=== PATIENT | male | born 1980 | race Caucasian/White ===

== ENCOUNTER → 2016-12-15 | Outpatient (CLI) | payer BC ==
--- NOTE | 2016-12-15 09:55 | USB ---
Reason for exam: clinical finding. History: U/S LT Cancelled Core of both breasts, November 25, 2013. Physical Findings: Nurse Summary: Patient complains of left breast swelling and pain x 6 weeks, antibiotics x 2 weeks with improvment (nurse mm). US Breast LT Left breast ultrasound includes all four quadrants, the retroareolar region and axilla. Finding demonstrates a 2.0 x 2.5 x 1.4cm hypoechoic, vascular lesion at the nipple. Probable inflammed gynecomastia surgical consult recommended. Consider excision. These results were verbally communicated with the patient and result sheet given to the patient on 12/15/16. ASSESSMENT: Probably benign, BI-RAD 3 RECOMMENDATION: Surgical consultation of the left breast. Manage patient on a clinical basis. Called with mammographic findings and has scheduled an appointment for the patient for 12/20/16 at 8:[address] Guevara. PRELIMINARY REPORT CALLED AND FAXED TO DR. GUEVARA ON 12/15/16 AT 300/TP.
[2016-12-15 10:54] LABS: Bilirubin, Delta 0.3 mg/dL (0.0-0.2); Total Bilirubin 0.7 mg/dL (0.2-1.3); Total Protein 8.1 g/dL (6.3-8.2)
[2016-12-15 15:01] LABS: Follicle Stimulating Hormone 2.9 mIU/mL (1.6-9.7); Prolactin 23.9 ng/mL (3.7-17.9)
== END | disposition home or self-care (01) ==
LOC: RADUSWWP 07:49
PROVIDERS: ATTEND Surgery
DX: N62 Hypertrophy of breast (principal)
CPT/HCPCS: 80076; 82626; 82670; 83001; 83002; 84146; 84403; 84443; 84702

== ENCOUNTER 2017-01-25 11:23 | Day surgery (SDC) | payer BC ==
[2017-01-23 10:12] VITALS: BMI 33.7
[~2017-01-25 11:23] MED LIST: DEXAMETHASONE SOD PHOSPHATE 10 MG/ML 1 ML VIAL IV ONE; HEPARIN SODIUM,PORCINE 5,000 UNIT/ML 1 ML VIAL SQ ONE; HYDROmorphone 1 MG/ML 1 ML SYRINGE IVP PRN; LACTATED RINGERS 1,000 ML IV SCH; LIDOCAINE 1% 20 ML VIAL (10MG/ML) FOR IV START INTRADERMA PRN; ONDANSETRON 4 MG/2 ML VIAL IVP ONE; Pre Op ABX Message 1 EACH MISC MISCELLANE ONE; SCOPOLAMINE 1.5MG/72HR PATCH TRANSDERM ONE
[2017-01-25] MEDS ORDERED: MIDAZOLAM 2 MG/2 ML VIAL IV ONE (12:14)
[2017-01-25] MEDS ORDERED: CLINDAMYCIN 900 MG in DEXTROSE 5% IN WATER 50 ML IVPB STA ×2 (12:55)
--- NOTE | 2017-01-25 13:11 | P.GSHP ---
History of Present Illness H&P Date: 01/25/17 Chief Complaint: Left gynecomastia 36 yrs old male presents with painful left breast enlargement for several weeks. Known gynecomastia left> right breast since age 8 as per patient. There was a red rash around the areola which has subsided. ball thread machine tender around the nipple. No nipple discharge. No fever. Smokes marijuana 2 times/ week. Pain has subsided but still has sensitivity of the nipple area ROS Additionally reports: Constitutional: No fever, chills or rigors. No weight loss or loss of appetite. HEENT: No difficulty with hearing, vision and swallowing. Lymphatic: No axillary, inguinal and cervical swellings. Endocrine: No thyroid disorders. Denies history of diabetes. Respiratory: No chest pain, shortness of breath, and cough. No hemoptysis. Cardiovascular: No palpitations, irregular HR Gastrointestinal: Denies heartburn. No change in bowel habits. No nausea or vomiting. Genitourinary: No increase in urinary frequency or urgency. No hematuria. No testicular masses or swelling Musculoskeletal: No back pain, joint stiffness or pain. Neurologic: No history of seizure disorder and headaches. Psychiatric: Denies depression or anxiety . No suicidal ideation. Hematologic: Denies any abnormal mucosal bleeding or easy bruising. Physical Exam Patient is a 36-year-old male. Breast: Inspection/Palpation: no erythema; Left breast > right. 3x3 cm circumscribed retroareolar mass, tender. No axillary lymph nodes enlarged. Abdomen: Auscultation/Inspection/Palpation: soft, non-distended, normal bowel sounds, and no tenderness. Hernia: none palpated. Lungs: Respiratory effort: no dyspnea. Auscultation: breath sounds normal. Cardiovascular: Heart Auscultation: normal S1 and S2. Assessment / Plan Painful gynecomastia 1. US left breast - gynecomastia 2. TSH, testosterone, estradiol ,HCG levels- normal 3. Left breast lumpectomy 4. Quit marijuana use 5. DIscussed about gynecomastia surgery - may cause left breast to be smaller post surgery and asymmetry may result. 1. Gynecomastia N62: Hypertrophy of breast Past Medical History Past Medical History: Hyperlipidemia, Hypertension Additional Past Medical History / Comment(s): No medication needed for hyperlidemia. History of Any Multi-Drug Resistant Organisms: None Reported Past Surgical History: No Surgical Hx Reported Past Anesthesia/Blood Transfusion Reactions: No Reported Reaction Past Psychological History: No Psychological Hx Reported Smoking Status: Former smoker Past Alcohol Use History: Occasional Additional Past Alcohol Use History / Comment(s): Smoked 1/2PPD for 15 yrs, quit 11/2016. Past Drug Use History: None Reported - Past Family History Father Family Medical History: No Reported History Medications and Allergies Home Medications Medication Instructions Recorded Confirmed Type Hydrochlorothiazide 25 mg PO QAM 01/23/17 01/25/17 History Lisinopril 20 mg PO QAM 01/23/17 01/25/17 History Loratadine [Claritin] 10 mg PO DAILY PRN 01/23/17 01/25/17 History Multivitamin [Men's Multi-Vitamin] 1 each PO DAILY 01/23/17 01/25/17 History Allergies Allergy/AdvReac Type Severity Reaction Status Date / Time Penicillins Allergy Unknown Verified 01/25/17 11:37 Childhood Surgical - Exam Vital Signs Temp Pulse BP Pulse Ox 97.6 F 72 143/90 97 01/25/17 11:43 01/25/17 11:43 01/25/17 11:43 01/25/17 11:43
[2017-01-25] MEDS ORDERED: PROPOFOL 10 MG/ML 20 ML VIAL IV ONE (13:20)
[2017-01-25] MEDS ORDERED: PHENYLEPHRINE-0.9% NACL SYG 1 MG/10 ML SYRINGE ONE (13:20)
[2017-01-25] MEDS ORDERED: SUCCINYLCHOLINE CHLORIDE 100 MG/5 ML SYR IV ONE (13:20)
[2017-01-25] MEDS ORDERED: MIDAZOLAM 2 MG/2 ML VIAL ONE (13:20)
[2017-01-25] MEDS ORDERED: LIDOCAINE 1% INJ 10MG/ML (20 ML MDV) ONE (13:20)
[2017-01-25] MEDS ORDERED: fentaNYL (PF) 50 MCG/ML 2 ML AMP ONE (13:20)
[2017-01-25] MEDS ORDERED: LIDOCAINE 2% (PF) 20 MG/ML 10ML SQ ONE (13:56)
[2017-01-25 15:10] VITALS: RESP 16; TEMP 97.7
[2017-01-25 16:16] VITALS: PULSE 70
[2017-01-25 16:33] VITALS: BP 128/81
--- NOTE | 2017-01-25 17:26 | P.OP ---
Date of Procedure: 01/25/17 Preoperative Diagnosis: Painful gynecomastia left breast Obesity BMI 33.7 History of marijuana use Postoperative Diagnosis: Same Procedure(s) Performed: Left breast lumpectomy Implants: NA Anesthesia: CHELSEYA, local Surgeon: Any Guevara Pathology: other Condition: stable Disposition: PACU Indications for Procedure: 36 years old male presents with left painful gynecomastia for several months. The nipple redness has subsided however he has pain and sensitivity on the left side underneath the nipple area. Informed consent obtained and patient elected to undergo left breast lumpectomy. The risks, benefits and potential complications including bleeding, infection, discrepancy in breast size, possible nipple necrosis were discussed and he elected to undergo left breast lumpectomy Operative Findings: Fibroadipose and breast tissue underneath the left area Nipple which was excised. Total tissue removed was grams Description of Procedure: The patient was brought to the operating room and placed in supine position with both arms out. IV sedation was given as per anesthesia team. Both breasts wwere prepped using ChloraPrep. Sterile drapes were applied. A timeout was performed to verify correct patient, correct procedure and correct side. Patient was confirmed to receive perioperative IV antibiotics, heparin 5000 units subcutaneous injection for DVT prophylaxis and bilateral SCDs. A 3 cm circumareolar skin incision was made along the inferior areola border. Superior and inferior subcutaneous flaps were raised. A 3 cm circumferential breast tissue was removed. The resulting defect was irrigated with normal saline and checked for hemostasis. The defect measured 7.5x6.5 x 4 cm. This was closed in 2 layers using interrupted sutures of 3-0 Vicryl followed by running subcuticular stitches of 4-0 Monocryl. Dermabond skin glue was applied. The sponge, instrument and needle count were correct 2. Patient tolerated the procedure well and was taken to post anesthesia care unit in stable condition. Final Pathologic Diagnosis BREAST, LEFT LUMPECTOMY : MATURE BENIGN VASCULARIZED FIBROADIPOSE TISSUE WITH FOCAL MATURE BENIGN BREAST PARENCHYMA, FAVOR LIPOMA.
== END 2017-01-25 16:36 | disposition home or self-care (01) ==
LOC: OR 11:23
PROVIDERS: ATTEND Surgery
DX: D17.79 Benign lipomatous neoplasm of other sites (principal); E66.9 Obesity, unspecified; Z68.37 Body mass index [BMI] 37.0-37.9, adult; Z88.0 Allergy status to penicillin; K21.9 Gastro-esophageal reflux disease without esophagitis
CPT/HCPCS: 19301; 88305; J2250; J1644; J1100; J2001 ×2; J2405; J3010; J2370; J0330; J2704

== ENCOUNTER 2019-05-22 14:52 | Emergency (ER) | payer BC ==
[2019-05-22 15:05] VITALS: BP 146/96; PULSE 62; RESP 18; TEMP 97.9
[2019-05-22] MEDS ORDERED: ORPHENADRINE 30 MG/ML 2 ML VIAL IM STA (15:24)
[2019-05-22] MEDS ORDERED: HYDROmorphone 0.5 MG/0.5 ML SYRINGE IVP STA (15:26)
[2019-05-22] MEDS ORDERED: KETOROLAC 60 MG/2 ML VIAL IM STA (15:26)
[2019-05-22] MEDS ORDERED: HYDROmorphone 0.5 MG/0.5 ML SYRINGE IM STA ×2 (15:36→17:11)
--- NOTE | 2019-05-22 15:50 | ED ---
Back Pain HPI - General Chief Complaint: Back Pain/Injury Stated Complaint: back pain Time Seen by Provider: 05/22/19 14:57 Source: patient Limitations: no limitations - History of Present Illness Initial Comments: Patient is a 39-year-old male presenting to emergency Department, via EMS, with complaints of low back pain and spasming since yesterday. Patient admits to chronic history of low back pain and spasms. Patient states he's had no trauma or injury to his back and the recent week. Patient states he went to the chiropractor yesterday and that his increase his pain. Patient denies any numbness and tingling into his extremities. Patient did try Tylenol and Motrin without relief. Patient states he is unable to sit as it makes the pain worse. Patient denies any saddle paresthesias or problems with urinating or bowel movements. Patient denies fever, chills. No other complaints at this time. Upon arrival to ER, vital signs are stable. - Related Data Home Medications Medication Instructions Recorded Confirmed Hydrochlorothiazide 25 mg PO QAM 01/23/17 01/25/17 Lisinopril 20 mg PO QAM 01/23/17 01/25/17 Loratadine [Claritin] 10 mg PO DAILY PRN 01/23/17 01/25/17 Multivitamin [Men's Multi-Vitamin] 1 each PO DAILY 01/23/17 01/25/17 Previous Rx's Medication Instructions Recorded Docusate [Colace] 100 mg PO BID #30 capsule 01/25/17 Hydrocodone/Acetaminophen [[place] 1 each PO Q6HR PRN #20 tab 01/25/17 5-325] Ketorolac [Toradol] 10 mg PO Q8HR #15 tab 05/22/19 methylPREDNISolone [Medrol Dose 4 mg PO DIRECTED #1 pack 05/22/19 Pack] Allergies Allergy/AdvReac Type Severity Reaction Status Date / Time Penicillins Allergy Unknown Verified 05/22/19 15:00 Childhood Review of Systems ROS Statement: Those systems with pertinent positive or pertinent negative responses have been documented in the HPI. ROS Other: All systems not noted in ROS Statement are negative. 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 HEAD: Atraumatic, normocephalic. EYES: Pupils equal round and reactive to light, extraocular movements intact, sclera anicteric, conjunctiva are normal. NECK: Normal range of motion, supple without lymphadenopathy or JVD. LUNGS: Breath sounds clear to auscultation bilaterally and equal. No wheezes rales or rhonchi. HEART: Regular rate and rhythm without murmurs, rubs or gallops. ABDOMEN: Soft, nontender, normoactive bowel sounds. No guarding, no rebound. No masses appreciated. : Deferred EXTREMITIES: Pain with palpation of the lumbar paraspinals bilaterally, and SI joint. Patient has pain with trunk range of motion. Sensation is equal and bilateral in the lower extremities. No pitting or edema. No clubbing or cyanosis. NEUROLOGICAL: Cranial nerves II through XII grossly intact. Normal speech. PSYCH: Normal mood, normal affect. SKIN: Warm, Dry, normal turgor, no rashes or lesions noted. Limitations: no limitations Course Vital Signs 05/22/19 15:00 Temperature 97.9 F Pulse Rate 62 Respiratory 18 Rate Blood Pressure 146/96 O2 Sat by Pulse 97 Oximetry Medical Decision Making - Medical Decision Making Patient is a 39-year-old male presenting with low back pain 2 days. Patient has history of low back pain. No trauma or injuries to the back. No red flag symptoms. X-rays reveal no acute fractures dislocations. Patient was given pain control, steroids. Patient will be discharged home with short course of steroids and Toradol. Patient is to follow-up with his PCP or orthopedics for further management. Patient will continue with muscle relaxers he has at home. Return parameters were discussed with the patient he verbalizes understanding. Case discussed with Dr. Lee. Disposition Clinical Impression: Low back pain Disposition: HOME SELF-CARE Condition: Stable Instructions (If sedation given, give patient instructions): Acute Low Back Pain (ED) Additional Instructions: Please return to the Emergency Department if symptoms worsen or any other concerns. Follow-up with PCP for further management. Prescriptions: methylPREDNISolone [Medrol Dose Pack] 4 mg PO DIRECTED #1 pack Ketorolac [Toradol] 10 mg PO Q8HR #15 tab Is patient prescribed a controlled substance at d/c from ED?: No Referrals: Yvan Holland MD [Primary Care Provider] - 1-2 days
--- NOTE | 2019-05-22 17:33 | XR ---
EXAMINATION TYPE: XR lumbar spine 2 or 3V DATE OF EXAM: 05/22/2019 CLINICAL HISTORY: Low back pain TECHNIQUE: Frontal and lateral images of the lumbar spine are obtained. COMPARISON: 9. FINDINGS: There are 5 lumbar type vertebral bodies identified. The lumbar spine shows straightened alignment without evidence of acute fracture or dislocation. Vertebral body heights and disk space he ights are within normal limits. Mild anterior spurring L2-L3 level. The overlying soft tissue appear s unremarkable. IMPRESSION: As above.
== END 2019-05-22 18:11 | disposition home or self-care (01) ==
LOC: EC 14:52
DX: M54.5 Low back pain (principal); G89.29 Other chronic pain; M62.830 Muscle spasm of back; I10 Essential (primary) hypertension; F17.200 Nicotine dependence, unspecified, uncomplicated; Z79.899 Other long term (current) drug therapy; Z88.0 Allergy status to penicillin
CPT/HCPCS: 72100; 99283; 96372 ×4; J2360; J1885; J1170

== ENCOUNTER → 2024-11-21 | Outpatient (CLI) | payer BC ==
--- NOTE | 2024-11-21 14:57 | US ---
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 TECHNIQUE: Grayscale, color Doppler and spectral Doppler evaluation of the bilateral carotid systems and vertebral arteries. Indirect Doppler criteria was utilized. FINDINGS: EXAM MEASUREMENTS: RIGHT: Peak Systolic Velocity (PSV) cm/sec ----- Right CCA: 93.9 ----- Right ICA: 78.8 ----- Right ECA: 116.7 ICA/CCA ratio: 0.8 RIGHT: End Diastole cm/sec ----- Right CCA: 27 ----- Right ICA: 29.4 ----- Right ECA: 22.1 LEFT: Peak Systolic Velocity (PSV) cm/sec ----- Left CCA: 107.3 ----- Left ICA: 112.7 ----- Left ECA: 113.4 ICA/CCA ratio: 1.0 LEFT: End Diastole cm/sec ----- Left CCA: 26 ----- Left ICA: 26 ----- Left ECA: 24.6 VERTEBRALS (direction of flow): Right Vertebral: Antegrade Left Vertebral: Antegrade Rhythm: Normal AERONAUTICS TEACHER NOTES: No significant stenosis seen Color Doppler imaging shows patency with blood flow throughout the carotid artery. Spectral waveforms are within normal limits. IMPRESSION: 1. Mild atheromatous plaquing without significant flow-limiting stenosis based on velocities. Criteria for Assigning % of Stenosis / Diameter reduction (Estimation based on the indirect measurements of the internal carotid artery velocities (ICA PSV). 1. Normal (no stenosis)=ICA PSV < 180 cm/s: ratio < 2.0: ICA EDV<40 cm/s. 2. Less than 50% stenosis=ICA PSV < 180 cm/s: ratio < 2.0: ICA EDV<40 cm/s. 3. 50 to 69% stenosis=ICA PSV of 180 to 230 cm/s: ration 2.0 ? 4.0: ICA EDV 40-100 cm/s. PSV 125-180 cm/sec and ICA/CCA PSV Ratio ? 2.0 is also consistent with 50-69% stenosis 4. Greater than 70% stenosis to near occlusion= ICA PSV > 230 cm/s: ratio > 4.0: ICA EDV > 100 cm/s. 5. Near occlusion= ICA PSV velocities may be low or undetectable: variable ratio and ICA EDV. 6. Total occlusion=unable to detect flow. [facility], , 11/21/2024 2:54 PM
== END | disposition home or self-care (01) ==
LOC: RADUSWWP 14:06
PROVIDERS: ATTEND Internal Medicine
DX: I65.23 Occlusion and stenosis of bilateral carotid arteries (principal); E78.00 Pure hypercholesterolemia, unspecified
CPT/HCPCS: 93880

== ENCOUNTER → 2025-01-24 | Outpatient (CLI) | payer BC ==
--- NOTE | 2025-01-24 13:13 | CA ---
Exercise Nuclear Stress Test Report Name: Robbin Carpenter Exam Date: 01/24/2025 10:25 Exam Location: [facility] Stress Ht (in): 75 Wt (lb): 280 BSA: 2.53 Ordering Phys: Sabino Newman MD Referring Phys: Sabino Newman MD Technologist: JUDE Age: 44 Gender: M : 1980 Procedure CPT: Indications: I70.90 UNSPECIFIED ATHEROSCLEROSIS ICD-10 Codes: Patient History: Hypertension, hyperlipidemia and history of tobacco use. Medications: LOSARTAN,,,, EZETIMIBE,,,, CETRAZINE,,,, MULTIVITAMIN,,, Meds past 24 hrs: Pretest Chest Pain: STRESS TEST Robert Protocol Exercise Duration (min:sec): 10:[address] Depressions (mm): 0 Angina Score: 0 Ye Score: 10.5 Resting HR (bpm): 69 Peak HR (bpm): 161 Resting BP (mmHg): 134 / 97 Peak BP (mmHg): 174 / 84 MPHR: 177 Target HR: 150 % MPHR: 91 METS: 12.1 Total Dose: Peak Dose: Atropine: Double Product: 17684 BP Response: Stress Termination: TARGET HR REACHED/MAX EXERTION Stress Symptoms: NO SYMPTOMS Stress Summary: The patient's target heart rate was achieved ECG ANALYSIS Resting ECG: Sinus rhythm. Normal conduction. No arrhythmias. Normal repolarization. Stress ECG: No ECG evidence of ischemia with exercise. Ventricular premature contraction. CONCLUSIONS Patient falls into low-risk group (DTS >= +5). This associates the patient with an annual CV mortality <= 0.5%. Good exercise tolerance Normal electrocardiographic response to exercise with no evidence of exercise-induced ischemia Nuclear images will be reported separately Dr. Isha Toney MD (Electronically Signed) Final Date: 24 January 2025 13:12
--- NOTE | 2025-01-24 17:17 | NM ---
EXAMINATION TYPE: NM stress cardiolite complete DATE OF EXAM: 01/24/2025 COMPARISON: NONE CLINICAL INDICATION: Male, 44 years old with history of I70.90 UNSPECIFIED ATHEROSCLEROSIS, TECHNIQUE: After the intravenous administration of 11.1 mCi Tc 99m Sestamibi - Cardiolite resting SP ECT images acquired 50 minutes post injection. At peak stress 26.7 mCi Tc 99m Sestamibi - Stress images obtained 15 minutes post injection The patient was stressed with 0.4mg Lexiscan. FINDINGS: There is diminished radiotracer accumulation within the inferior wall near the cardiac base stress im ages. This is improved on the resting images. Polar maps correlate but may slightly underestimate the reversible defect size. Wall motion is normal. Ejection fraction is calculated to be 55 %. IMPRESSION: 1. Stress-induced ischemic change along the inferior wall near the cardiac base. [facility], , 01/24/2025 5:14 PM
== END | disposition home or self-care (01) ==
LOC: RADNMMAIN 09:02
PROVIDERS: ATTEND Internal Medicine
DX: I70.90 Unspecified atherosclerosis (principal)
CPT/HCPCS: 93017; 78452; A9500